=== PATIENT | female | born 1960 | race Asian ===

== ENCOUNTER 2020-11-27 16:01 | Outpatient (CLI) | payer BC | END 2020-11-27 16:02 | disposition home or self-care (01) | LOC: CSHRAD 16:01 | PROVIDERS: ATTEND Internal Medicine Rheumatology | DX: M25.551 Pain in right hip (principal); M25.552 Pain in left hip; M54.5 Low back pain; M41.9 Scoliosis, unspecified | CPT/HCPCS: 72100; 72170 ==

== ENCOUNTER 2025-02-22 10:14 | Outpatient (CLI) | payer BC | END 2025-02-22 10:15 | disposition home or self-care (01) | LOC: CSHMAMMO 10:14 | PROVIDERS: ATTEND Internal Medicine Rheumatology | DX: M81.0 Age-related osteoporosis without current pathological fracture (principal); M85.88 Other specified disorders of bone density and structure, other site | CPT/HCPCS: 77080 ==